=== PATIENT | male | born 1965 | race Caucasian/White ===

== ENCOUNTER 2017-07-16 10:30 | Emergency (ER) | payer MEDICAID, OTHER ==
[~2017-07-16] VITALS: Ht 190.5 cm; Wt 83.1 kg
[2017-07-16 10:35] VITALS: BP 133/90
--- NOTE | 2017-07-16 13:12 | NUR ---
PATIENT LEFT WITHOUT BEING SEEN BY DR. ESPITIA. NO FURTHER CARE PROVIDED FOR PATIENT.
== END 2017-07-16 13:12 | disposition left against medical advice (07) ==
LOC: MED 10:30
DX: T63.301A Toxic effect of unspecified spider venom, accidental (unintentional), initial encounter (principal); Z53.21 Procedure and treatment not carried out due to patient leaving prior to being seen by health care provider